=== PATIENT | female | born 1950 | race Caucasian/White ===

== ENCOUNTER 2020-11-21 08:08 | Emergency (ER) | payer OTHER ==
[~2020-11-21] VITALS: Ht 177.8 cm; Wt 77.1 kg
[2020-11-21] MEDS ORDERED: ACET1TAB55 PO (08:45)
[2020-11-21] MEDS ORDERED: ASPI81CH48 PO (08:46)
[2020-11-21] MEDS ORDERED: ELIQ5TAB PO (08:46)
[2020-11-21] MEDS ORDERED: GABA-283 PO (08:54)
[2020-11-21] MEDS ORDERED: HYDR-3715 PO (08:54)
[2020-11-21] MEDS ORDERED: PROM25TA12 PO (08:54)
[2020-11-21] MEDS ORDERED: FURO20TA2 PO (08:54)
[2020-11-21] MEDS ORDERED: FLUO40CA PO (08:54)
[2020-11-21] MEDS ORDERED: DILT240C82 PO (08:54)
[2020-11-21] MEDS ORDERED: PIOG1TAB36 PO (08:54)
[2020-11-21] MEDS ORDERED: ATOR40TA75 PO (08:54)
--- NOTE | 2020-11-21 09:04 | REP ---
INDICATION: flank pain right?stone. COMPARISON: None. TECHNIQUE: Standard helical technique without contrast using the stone protocol due right flank pain FINDINGS: The lung bases are clear. Tiny calcifications are seen in the right renal pelvis with 1 nephrolith seen in the inferior pole. There is no hydronephrosis or hydroureter. There are bilateral renovascular calcifications. There are no urinary bladder calcifications. There are bilateral pelvic phleboliths. Calcifications are seen in the abdominal aorta and common iliac arteries due to calcified atheromatous plaque formation. There is no aneurysmal dilatation. There is no para-aortic adenopathy. There is no free fluid or free air. Limited evaluation of the bowel loops and the mesenteries show no gross abnormalities. There are calcifications in the pancreas likely due to chronic change. There are no cholelith. Limited evaluation of the liver and spleen show no gross abnormalities. There is no adrenal gland abnormality. Bone window technique throughout the examination shows a grade 4 anterior compression fracture of L2 the age of which cannot be determined by this exam. IMPRESSION: 1. Nephrolithiasis on the right without obstructive phenomena as described above. 2. Bilateral renal calcifications as described above. 3. Pancreatic calcifications likely chronic, however, since are no priors comparison follow-up with pre and postcontrast enhanced pancreatic CT MRI should be considered. 4. Age undetermined L2 compression fracture as described above. 5. Other findings as described above. <Electronically signed by Marco Antonio Rodriguez > 11/21/20 [id number]
[2020-11-21 10:22] LABS: GLUCOSE, URINE (UA) MANUAL NEGATIVE (NEGATIVE)
[2020-11-21 10:23] LABS: BILIRUBIN, URINE MANUAL OBSCURED (NEGATIVE); KETONE, URINE MANUAL OBSCURED mg/dL (NEGATIVE); UROBILINOGEN, URINE MANUAL OBSCURED mg/dl (NORMAL)
[2020-11-21 10:40] LABS: RBC, URINE TNTC /hpf (0-3); SQUAMOUS EPITHELIAL CELL URINE SMALL AMOUNT /hpf (SMALL AMT)
[2020-11-21 10:41] LABS: BACTERIA, URINE SMALL AMOUNT; HYALINE CAST, URINE NONE SEEN /lpf (0-1)
[2020-11-21] MEDS ORDERED: NITR1CAP11 PO (10:59)
[2020-11-21] MEDS ORDERED: LIDOCAINE 5% (LIDODERM) PATCH TD ONE (11:00)
[2020-11-21] MEDS ORDERED: PERC5TAB12 PO (11:00)
[2020-11-21 11:15] VITALS: BP 151/79
[2020-11-21] MEDS ORDERED: **NOTE PATIENT COMMENT** MISC XX ONE (23:00)
--- NOTE | 2020-11-22 11:50 | ED PDOC ---
Post-Departure Follow-Up certified letter sent regarding radiology report Marley Beach MD Nov 22, 2020 11:50
== END 2020-11-21 11:16 | disposition home or self-care (01) ==
LOC: M ED 08:08
DX: N39.0 Urinary tract infection, site not specified (principal); K86.89 Other specified diseases of pancreas; I48.91 Unspecified atrial fibrillation; E11.9 Type 2 diabetes mellitus without complications; E78.5 Hyperlipidemia, unspecified; Z79.01 Long term (current) use of anticoagulants; Z79.891 Long term (current) use of opiate analgesic; Z79.82 Long term (current) use of aspirin; Z79.899 Other long term (current) drug therapy

== ENCOUNTER 2022-06-07 19:06 | Inpatient (IN) | payer OTHER ==
[~2022-06-07] VITALS: Ht 177.8 cm; Wt 71.2 kg
[~2022-06-07 19:06] MED LIST: ACET1TAB55 PO; ASPI81CH48 PO; ATOR40TA75 PO; DILT240C82 PO; ELIQ5TAB PO; FLUO40CA PO; FURO20TA2 PO; GABA-283 PO; HYDR-3715 PO; NITR1CAP11 PO; PERC5TAB12 PO; PIOG1TAB36 PO; PROM25TA12 PO
[2022-06-07] MEDS ORDERED: NS 1,000 ML IV SCH (20:25)
[2022-06-07 20:42] LABS: BASO % 0.2 % (0.0-1.0); HEMATOCRIT 37.4 % (36.0-47.0); HEMOGLOBIN 11.6 g/dl (12.0-15.5); LYMPH # 1.2 10^3/uL (1.5-5.0); MEAN CORPUSCULAR HEMOGLOBIN 28.4 pg (27.0-33.0); MEAN CORPUSCULAR VOLUME 91.7 fl (80.0-96.0); MONO # 1.1 10^3/uL (0.0-0.8); MONO % 4.3 % (2.0-8.0); NEUTROPHILS # 21.9 10^3/uL (1.5-8.5); NEUTROPHILS % 89.7 % (36.0-66.0); PLATELET COUNT, AUTOMATED 298 10^3/uL (150-450); RED BLOOD COUNT 4.08 10^6/uL (4.00-5.40); WHITE BLOOD COUNT 24.4 10^3/uL (4.0-10.0)
[2022-06-07 20:50] LABS: ALBUMIN 3.1 G/DL (3.2-5.2); BILIRUBIN,DIRECT 0.2 MG/DL (<0.4); BILIRUBIN,TOTAL 0.5 MG/DL (0.3-1.2); CALCIUM LEVEL 8.5 MG/DL (8.3-10.6); CREATININE FOR GFR 0.97 MG/DL (0.55-1.30); GLOMERULAR FILTRATION RATE 59.9 (>39); POTASSIUM SERUM 4.6 MMOL/L (3.5-5.1); TOTAL PROTEIN 4.5 G/DL (5.7-8.2)
[2022-06-07 20:52] LABS: THYROID STIMULATING HORMONE 0.439 uIU/ML (0.55-4.78); THYROXINE (T4) 9.7 UG/DL (4.5-10.9)
[2022-06-07 20:53] LABS: MB/CK RELATIVE INDEX 1.19 (< OR =4)
[2022-06-07] MEDS ORDERED: ACETAMINOPHEN 325 MG TAB PO ONE (21:45)
[2022-06-07 22:41] LABS: CK-MB VALUE MASS 1.6 NG/ML (<3.6); MB/CK RELATIVE INDEX 0.86 (< OR =4)
[2022-06-07] MEDS ORDERED: ISOVUE-370 76% 100ML VIAL As Ordered ONE (22:49)
[2022-06-08] VITALS (20 sets, daily range): BP systolic 115–181; BP diastolic 53–94; O2SAT 93–100
[2022-06-08] MEDS ORDERED: cefTRIAXone SOD 1 GM in D5W MINI-BAG PLUS 50 ML IV ONE (00:05)
[2022-06-08] MEDS ORDERED: AZITHROMYCIN INJ 500 MG, VIAL MATE ADAPTER 1 EACH in D5W 250 ML IV ONE (00:05)
[2022-06-08] MEDS ORDERED: METF10004 PO (00:21)
[2022-06-08] MEDS ORDERED: DIGO0.123 PO (00:21)
[2022-06-08] MEDS ORDERED: LEVE1INJ5 INJ (00:21)
[2022-06-08] MEDS ORDERED: HOME MED LIST COMPLETE! XX SCH (00:25)
[2022-06-08] MEDS ORDERED: GLUCAGON INJ 1MG VIAL SC PRN (00:50)
[2022-06-08] MEDS ORDERED: DEXTROSE 50% 50ML SYRINGE IV PRN (00:50)
[2022-06-08] MEDS ORDERED: COMBIVENT RESPIMAT 100-20MCG INHALER 4GM INH PRN (00:50)
[2022-06-08] MEDS ORDERED: GLUCOSE 4GM CHEW TABLET PO PRN (00:50)
[2022-06-08] MEDS: NS 1,000 ML IV SCH ×3 (01:00→19:40)
[2022-06-08] MEDS: LEVEMIR (INSULIN DETEMIR) 1 UNITS/0.01ML SC SCH ×2 (01:40→20:30)
[2022-06-08] MEDS: ATORVASTATIN 20 MG TAB PO SCH ×2 (01:40→20:30)
[2022-06-08] MEDS: APIXABAN 5 MG TAB (ELIQUIS) PO SCH ×3 (01:40→20:28)
[2022-06-08] MEDS: ASPIRIN 81MG CHEW TABLET PO SCH ×2 (01:41→20:29)
[2022-06-08] MEDS: ACETAMINOPHEN TAB 650MG DOSE (2X325MG) PO PRN (03:25)
[2022-06-08 05:35] LABS: HEMATOCRIT 34.1 % (36.0-47.0); HEMOGLOBIN 10.5 g/dl (12.0-15.5); MEAN CORPUSCULAR HEMOGLOBIN 28.5 pg (27.0-33.0); MEAN CORPUSCULAR HGB CONC 30.8 g/dl (32.0-36.5); MEAN CORPUSCULAR VOLUME 92.7 fl (80.0-96.0); PLATELET COUNT, AUTOMATED 256 10^3/uL (150-450); RED BLOOD COUNT 3.68 10^6/uL (4.00-5.40); WHITE BLOOD COUNT 27.4 10^3/uL (4.0-10.0)
[2022-06-08 05:52] LABS: INR 1.21; PROTHROMBIN TIME 15.6 SECONDS (12.5-14.5)
[2022-06-08 05:53] LABS: PARTIAL THROMBOPLASTIN TIME 33.7 SECONDS (24.8-34.2)
[2022-06-08 06:07] LABS: MAGNESIUM LEVEL 1.2 MG/DL (1.8-2.4)
[2022-06-08 06:08] LABS: DIGOXIN LEVEL < 0.1 NG/ML (0.8-2.0)
[2022-06-08 06:09] LABS: BLOOD UREA NITROGEN 23 MG/DL (9-23); CALCIUM LEVEL 8.3 MG/DL (8.3-10.6); CARBON DIOXIDE LEVEL 20 MMOL/L (20-31); CHLORIDE LEVEL 104 MMOL/L (98-107); CREATININE FOR GFR 0.94 MG/DL (0.55-1.30); GLOMERULAR FILTRATION RATE > 60.0 (>39); GLUCOSE, FASTING 187 MG/DL (74-106); POTASSIUM SERUM 4.1 MMOL/L (3.5-5.1); SODIUM LEVEL 136 MMOL/L (136-145)
[2022-06-08] MEDS: DOXYCYCLINE HYCLATE 100MG TABLET PO SCH ×2 (06:12→17:35)
[2022-06-08] MEDS: INSULIN LISPRO (NovoLOG) PER UNIT SC SCH ×4 (07:30→20:30)
[2022-06-08] MEDS ORDERED: MAGNESIUM OXIDE 400MG TAB (MAG-OX) PO ONE ×2 (08:05→15:45)
[2022-06-08] MEDS: GABAPENTIN 400MG CAP PO SCH ×3 (08:49→20:28)
[2022-06-08] MEDS: DIGOXIN 0.125 MG TAB PO SCH (08:49)
[2022-06-08] MEDS: FUROSEMIDE 20 MG TAB PO SCH ×2 (08:50→16:23)
[2022-06-08] MEDS: FLUoxetine 20MG CAP PO SCH (08:50)
[2022-06-08] MEDS ORDERED: guaiFENesin ER 600 MG TAB PO SCH (09:00)
[2022-06-08 15:02] LABS: BASO # 0.1 10^3/uL (0.0-0.2); BASO % 0.2 % (0.0-1.0); HEMATOCRIT 34.8 % (36.0-47.0); HEMOGLOBIN 10.8 g/dl (12.0-15.5); LYMPH # 2.6 10^3/uL (1.5-5.0); LYMPH % 9.4 % (24.0-44.0); MEAN CORPUSCULAR HEMOGLOBIN 28.6 pg (27.0-33.0); MEAN CORPUSCULAR VOLUME 92.3 fl (80.0-96.0); MONO % 6.3 % (2.0-8.0); NEUTROPHILS # 22.7 10^3/uL (1.5-8.5); NEUTROPHILS % 83.4 % (36.0-66.0); PLATELET COUNT, AUTOMATED 248 10^3/uL (150-450); RED BLOOD COUNT 3.77 10^6/uL (4.00-5.40); WHITE BLOOD COUNT 27.2 10^3/uL (4.0-10.0)
[2022-06-08 15:24] LABS: MONO # 1.7 10^3/uL (0.0-0.8)
[2022-06-08] MEDS ORDERED: IPRATROPIUM 0.5MG/ALBUTEROL 2.5MG INH SOL UD 3ML (DUONEB) NEB ONE (15:55)
[2022-06-08] MEDS: guaiFENesin ER 600 MG TAB PO SCH ×2 (17:35→23:10)
[2022-06-09] VITALS (31 sets, daily range): BP systolic 126–157; BP diastolic 62–88; O2SAT 79–100
[2022-06-09] MEDS: cefTRIAXone SOD 1 GM in D5W MINI-BAG PLUS 50 ML IV SCH (00:37)
[2022-06-09] MEDS ORDERED: PILL CUTTER 1 EACH XX ONE (05:09)
[2022-06-09] MEDS: DOXYCYCLINE HYCLATE 100MG TABLET PO SCH ×2 (05:10→17:47)
[2022-06-09] MEDS: guaiFENesin ER 600 MG TAB PO SCH (05:10)
[2022-06-09] MEDS: NS 1,000 ML IV SCH ×2 (06:26→16:05)
[2022-06-09] MEDS: INSULIN LISPRO (NovoLOG) PER UNIT SC SCH ×4 (07:30→20:19)
[2022-06-09 07:47] LABS: BASO % 0.2 % (0.0-1.0); EOS # 0.1 10^3/uL (0.0-0.5); EOS % 0.5 % (0.0-3.0); HEMATOCRIT 31.7 % (36.0-47.0); HEMOGLOBIN 9.8 g/dl (12.0-15.5); LYMPH # 2.8 10^3/uL (1.5-5.0); MEAN CORPUSCULAR HEMOGLOBIN 28.8 pg (27.0-33.0); MEAN CORPUSCULAR HGB CONC 30.9 g/dl (32.0-36.5); MEAN CORPUSCULAR VOLUME 93.2 fl (80.0-96.0); MONO % 6.1 % (2.0-8.0); NEUTROPHILS # 12.3 10^3/uL (1.5-8.5); NEUTROPHILS % 75.6 % (36.0-66.0); PLATELET COUNT, AUTOMATED 241 10^3/uL (150-450); WHITE BLOOD COUNT 16.3 10^3/uL (4.0-10.0)
[2022-06-09 08:14] LABS: MAGNESIUM LEVEL 1.5 MG/DL (1.8-2.4)
[2022-06-09 08:21] LABS: ALBUMIN 2.4 G/DL (3.2-5.2); ALKALINE PHOSPHATASE 84 U/L (46-116); ALT/SGPT < 9 U/L (7.0-40); AST/SGOT 13 U/L (<34); BILIRUBIN,TOTAL 0.2 MG/DL (0.3-1.2); BLOOD UREA NITROGEN 23 MG/DL (9-23); CALCIUM LEVEL 8.4 MG/DL (8.3-10.6); CARBON DIOXIDE LEVEL 24 MMOL/L (20-31); CHLORIDE LEVEL 109 MMOL/L (98-107); CREATININE FOR GFR 0.98 MG/DL (0.55-1.30); GLOMERULAR FILTRATION RATE 59.2 (>39); GLUCOSE, FASTING 51 MG/DL (74-106); POTASSIUM SERUM 3.9 MMOL/L (3.5-5.1); SODIUM LEVEL 141 MMOL/L (136-145); TOTAL PROTEIN 5.4 G/DL (5.7-8.2)
[2022-06-09] MEDS ORDERED: MAGNESIUM OXIDE 400MG TAB (MAG-OX) PO ONE (09:00)
[2022-06-09] MEDS: DIGOXIN 0.125 MG TAB PO SCH (09:17)
[2022-06-09] MEDS: FUROSEMIDE 20 MG TAB PO SCH ×2 (09:17→16:09)
[2022-06-09] MEDS: APIXABAN 5 MG TAB (ELIQUIS) PO SCH ×2 (09:17→20:25)
[2022-06-09] MEDS: FLUoxetine 20MG CAP PO SCH (09:17)
[2022-06-09] MEDS: GABAPENTIN 400MG CAP PO SCH ×3 (09:18→20:26)
[2022-06-09] MEDS: guaiFENesin 200 MG TAB PO SCH ×2 (11:47→17:47)
[2022-06-09] MEDS: ATORVASTATIN 20 MG TAB PO SCH (20:25)
[2022-06-09] MEDS: ASPIRIN 81MG CHEW TABLET PO SCH (20:25)
[2022-06-09] MEDS: LEVEMIR (INSULIN DETEMIR) 1 UNITS/0.01ML SC SCH (20:25)
[2022-06-09] MEDS: ACETAMINOPHEN TAB 650MG DOSE (2X325MG) PO PRN (20:26)
[2022-06-10] VITALS (14 sets, daily range): BP systolic 133–146; BP diastolic 65–70; O2SAT 91–97
[2022-06-10] MEDS: NS 1,000 ML IV SCH (00:37)
[2022-06-10] MEDS: guaiFENesin 200 MG TAB PO SCH ×2 (00:37→05:03)
[2022-06-10] MEDS: cefTRIAXone SOD 1 GM in D5W MINI-BAG PLUS 50 ML IV SCH (00:37)
[2022-06-10 04:30] LABS: BASO % 0.3 % (0.0-1.0); EOS # 0.1 10^3/uL (0.0-0.5); EOS % 0.9 % (0.0-3.0); HEMATOCRIT 30.4 % (36.0-47.0); HEMOGLOBIN 9.2 g/dl (12.0-15.5); LYMPH # 3.6 10^3/uL (1.5-5.0); LYMPH % 30.7 % (24.0-44.0); MEAN CORPUSCULAR HEMOGLOBIN 28.2 pg (27.0-33.0); MEAN CORPUSCULAR HGB CONC 30.3 g/dl (32.0-36.5); MEAN CORPUSCULAR VOLUME 93.3 fl (80.0-96.0); MONO # 0.7 10^3/uL (0.0-0.8); NEUTROPHILS # 7.2 10^3/uL (1.5-8.5); NEUTROPHILS % 61.6 % (36.0-66.0); PLATELET COUNT, AUTOMATED 224 10^3/uL (150-450); RED BLOOD COUNT 3.26 10^6/uL (4.00-5.40); WHITE BLOOD COUNT 11.7 10^3/uL (4.0-10.0)
[2022-06-10 05:02] LABS: MAGNESIUM LEVEL 1.5 MG/DL (1.8-2.4)
[2022-06-10] MEDS: DOXYCYCLINE HYCLATE 100MG TABLET PO SCH (05:03)
[2022-06-10 05:07] LABS: ALBUMIN 2.3 G/DL (3.2-5.2); ALKALINE PHOSPHATASE 82 U/L (46-116); ALT/SGPT 14 U/L (7.0-40); AST/SGOT 16 U/L (<34); BILIRUBIN,TOTAL 0.2 MG/DL (0.3-1.2); BLOOD UREA NITROGEN 18 MG/DL (9-23); CALCIUM LEVEL 8.3 MG/DL (8.3-10.6); CARBON DIOXIDE LEVEL 24 MMOL/L (20-31); CHLORIDE LEVEL 110 MMOL/L (98-107); CREATININE FOR GFR 0.92 MG/DL (0.55-1.30); GLOMERULAR FILTRATION RATE > 60.0 (>39); GLUCOSE, FASTING 48 MG/DL (74-106); POTASSIUM SERUM 3.9 MMOL/L (3.5-5.1); SODIUM LEVEL 142 MMOL/L (136-145)
[2022-06-10] MEDS ORDERED: MAGNESIUM OXIDE 400MG TAB (MAG-OX) PO ONE ×2 (06:00→07:25)
[2022-06-10] MEDS: INSULIN LISPRO (NovoLOG) PER UNIT SC SCH (07:30)
[2022-06-10] MEDS: FUROSEMIDE 20 MG TAB PO SCH (08:16)
[2022-06-10] MEDS: FLUoxetine 20MG CAP PO SCH (08:16)
[2022-06-10] MEDS: GABAPENTIN 400MG CAP PO SCH (08:17)
[2022-06-10] MEDS: APIXABAN 5 MG TAB (ELIQUIS) PO SCH (08:20)
[2022-06-10] MEDS: DIGOXIN 0.125 MG TAB PO SCH (08:20)
[2022-06-10] MEDS: ACETAMINOPHEN TAB 650MG DOSE (2X325MG) PO PRN (08:27)
[2022-06-10] MEDS ORDERED: LEVO1TAB40 PO (09:32)
[2022-06-10] MEDS ORDERED: DOXY100T PO (09:32)
== END 2022-06-10 11:20 | disposition home or self-care (01) | DRG 871 ==
LOC: M ED 20:30 → M PCU 06-08 00:56 → M ED INP 06-08 00:56 → M PCU 06-08 02:38
PROVIDERS: ADMIT Internal Medicine; ATTEND Family Medicine
DX: A41.9 Sepsis, unspecified organism (principal); J18.9 Pneumonia, unspecified organism; I10 Essential (primary) hypertension; I48.91 Unspecified atrial fibrillation; N28.1 Cyst of kidney, acquired; Z79.01 Long term (current) use of anticoagulants; E11.9 Type 2 diabetes mellitus without complications; F41.9 Anxiety disorder, unspecified; F32.A Depression, unspecified; Z79.82 Long term (current) use of aspirin; Z79.899 Other long term (current) drug therapy; Z89.421 Acquired absence of other right toe(s); F17.200 Nicotine dependence, unspecified, uncomplicated; I25.10 Atherosclerotic heart disease of native coronary artery without angina pectoris; J43.9 Emphysema, unspecified

== ENCOUNTER → 2022-06-23 | Outpatient (REF) | payer OTHER ==
[~2022-06-23] MED LIST changes: +DIGO0.123 PO; +DOXY100T PO; +LEVE1INJ5 INJ; +LEVO1TAB40 PO; +METF10004 PO
[2022-06-23 16:12] LABS: CALCIUM LEVEL 8.9 MG/DL (8.3-10.6); CREATININE FOR GFR 1.29 MG/DL (0.55-1.30); DIGOXIN LEVEL 0.6 NG/ML (0.8-2.0); GLOMERULAR FILTRATION RATE 43.1 (>39); POTASSIUM SERUM 4.8 MMOL/L (3.5-5.1); THYROID STIMULATING HORMONE 0.838 uIU/ML (0.55-4.78)
[2022-06-23 16:13] LABS: FREE T4 0.97 NG/DL (0.89-1.76)
[2022-06-23 18:18] LABS: CREATININE, URINE 143.6 MG/DL; MAU/CREAT RATIO 54.3 MCG/MG (0.0-30.0)
== END ==
LOC: M LAB REF 12:43
PROVIDERS: ATTEND Nurse Practitioner Family
DX: I48.91 Unspecified atrial fibrillation (principal)